=== PATIENT | female | born 1960 | race Caucasian/White ===

== ENCOUNTER 2020-11-09 18:34 | Inpatient (IN) | payer OTHER ==
[~2020-11-09] VITALS: Ht 157.5 cm; Wt 75.0 kg
--- NOTE | 2020-11-09 18:45 | NUR ---
pt BIB [facility] from [facility] for CP onset this AM and is relieved with nitro. pt denies SOB. reports some mild nausea PAT, no vomiting. no c/o at this time
[2020-11-09] MEDS ORDERED: MAALOX/HYOSCYAMINE/LIDOCAINE 45 ML BTL PO ONE (19:00)
[2020-11-09 19:20] LABS: BASOPHILS % (AUTO) 0 % (0-1); EOSINOPHILS % (AUTO) 0 % (1-7); LYMPHOCYTES % (AUTO) 10 % (22-44); MEAN CORPUSCULAR HEMOGLOBIN 30.6 pg (27.0-34.8); MEAN CORPUSCULAR HGB CONC 34.2 g/dL (32.4-35.8); MEAN PLATELET VOLUME 8.2 fL (7.4-10.4); MONOCYTES % (AUTO) 6 % (2-9); NEUTROPHILS % (AUTO) 83 % (42-75); PLATELET COUNT 265 x10^3/uL (130-400); RED CELL DISTRIBUTION WIDTH 12.5 % (9.6-15.2)
--- NOTE | 2020-11-09 19:20 | NUR ---
Dr Seaman at bedside for eval
[2020-11-09] MEDS ORDERED: NITROGLYCERIN SINGLE TAB 0.4 MG SL ONE ×2 (19:30→19:40)
[2020-11-09 19:31] LABS: ALBUMIN 3.1 g/dL (3.4-5.0); ANION GAP 11 mmol/L (5-15); CALCIUM 9.6 mg/dL (8.5-10.1); CHLORIDE 98 mmol/L (98-107); CREATININE 0.63 mg/dL (0.55-1.02)
--- NOTE | 2020-11-09 19:31 | NUR ---
CXR at bedside
--- NOTE | 2020-11-09 19:31 | NUR ---
pt now reports that she is experiencing epigastric pain at 06/15
[2020-11-09 19:36] LABS: ALKALINE PHOSPHATASE 252 U/L (45-117); BILIRUBIN,TOTAL 2.8 mg/dL (0.2-1.0); TOTAL PROTEIN 6.4 g/dL (6.4-8.2)
[2020-11-09] MEDS ORDERED: PROPARACAINE OPHTH 0.5%, 15ML ONE ×2 (19:46→19:48)
[2020-11-09 19:55] LABS: ALANINE AMINOTRANSFERASE 1763 U/L (12-78)
--- NOTE | 2020-11-09 20:08 | NUR ---
repeat EKG at bedside Dr. Seaman at bedside for recheck
[2020-11-09] MEDS ORDERED: HEPARIN 5,000 UNITS/ML, 1ML IV ONE (20:30)
[2020-11-09] MEDS ORDERED: HEPARIN 5,000 UNITS/ML, 1ML IV PRN (20:30)
[2020-11-09] MEDS ORDERED: HEPARIN 25,000 UNITS/250ML PMX 250 ML IV PRN (20:30)
[2020-11-09] MEDS ORDERED: SEMA1PEN3 SQ (20:45)
[2020-11-09] MEDS ORDERED: LISI40TA9 PO (20:45)
[2020-11-09] MEDS ORDERED: METF500T17 PO (20:45)
[2020-11-09] MEDS ORDERED: ATOR10TA9 PO (20:45)
--- NOTE | 2020-11-09 20:45 | NUR ---
Dr. Corley has bene to bedside for eval. 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 consent obtained, procural sedation packet initiated pt undressed. pt sister at bedside
[2020-11-09] MEDS ORDERED: ONDANSETRON 2MG/ML, 2ML ONE (20:49)
[2020-11-09] MEDS ORDERED: FENTANYL PF 100 MCG/2ML ONE ×2 (20:57→21:21)
[2020-11-09] MEDS ORDERED: LIDOCAINE 2%, 20ML ONE (20:57)
[2020-11-09] MEDS ORDERED: MIDAZOLAM 1 MG/ML, 2ML ONE (20:57)
[2020-11-09] MEDS ORDERED: ONDANSETRON 2MG/ML, 2ML IVPush ONE (21:00)
[2020-11-09 21:12] LABS: INTERNATIONAL NORMALIZED RATIO 1.01 (0.93-1.1); PROTHROMBIN TIME 10.8 Seconds (9.6-11.5)
[2020-11-09] MEDS ORDERED: VERAPAMIL 2.5 MG/ML, 2ML ONE (21:16)
[2020-11-09] MEDS ORDERED: BIVALIRUDIN 250 MG ONE (21:16)
[2020-11-09] MEDS ORDERED: ONDANSETRON ODT 4 MG PO PRN (21:30)
[2020-11-09] MEDS ORDERED: morphine SULFATE 10 MG/ML, 1ML IVPush PRN (21:30)
[2020-11-09] MEDS ORDERED: BISACODYL 10 MG SUPP PR PRN (21:30)
[2020-11-09] MEDS ORDERED: NITROGLYCERIN 0.4 MG BOTTLE (25 TABS) SL PRN (21:30)
[2020-11-09] MEDS ORDERED: POLYETHYLENE GLYCOL 17 GM PACKET PO PRN (21:30)
[2020-11-09 21:50] VITALS: BP 104/70
[2020-11-09] MEDS: SODIUM CHLORIDE 0.9% 1,000 ML IV SCH (23:12)
[2020-11-10 01:33] VITALS: BP 117/82
[2020-11-10] MEDS: ASPIRIN 81 MG TABLET EC PO SCH (05:28)
[2020-11-10] MEDS: SODIUM CHLORIDE 0.9% 1,000 ML IV SCH (05:28)
[2020-11-10 06:11] LABS: BASOPHILS % (AUTO) 1 % (0-1); EOSINOPHILS % (AUTO) 1 % (1-7); LYMPHOCYTES % (AUTO) 34 % (22-44); MEAN CORPUSCULAR HEMOGLOBIN 30.6 pg (27.0-34.8); MEAN CORPUSCULAR HGB CONC 34.2 g/dL (32.4-35.8); MEAN PLATELET VOLUME 8.3 fL (7.4-10.4); MONOCYTES % (AUTO) 7 % (2-9); NEUTROPHILS % (AUTO) 58 % (42-75); PLATELET COUNT 239 x10^3/uL (130-400); RED BLOOD COUNT 4.69 x10^6/uL (3.82-5.3); RED CELL DISTRIBUTION WIDTH 12.3 % (9.6-15.2)
[2020-11-10 06:13] LABS: CHLORIDE 104 mmol/L (98-107)
[2020-11-10 06:38] LABS: ALANINE AMINOTRANSFERASE 1394 U/L (12-78); ALBUMIN 2.7 g/dL (3.4-5.0); ALKALINE PHOSPHATASE 249 U/L (45-117); ANION GAP 7 mmol/L (5-15); BILIRUBIN,TOTAL 2.1 mg/dL (0.2-1.0); CALCIUM 8.6 mg/dL (8.5-10.1); CHOL/HDL RATIO 1.8; CHOLESTEROL, TOTAL 61 mg/dL (140-239); CREATININE 0.35 mg/dL (0.55-1.02); HDL CHOL % 56 % (28-40); HDL CHOLESTEROL (DIRECT) 34 mg/dL (40-60); LDL CHOLESTEROL,CALCULATED 13 mg/dL (54-169); LDL/HDL RATIO 0.4 (0.5-3.0); TOTAL PROTEIN 5.8 g/dL (6.4-8.2); TRIGLYCERIDES 68 mg/dL (50-200); VLDL CHOLESTEROL 14 mg/dL (0-25)
[2020-11-10 07:48] VITALS: BP 122/84
[2020-11-10] MEDS ORDERED: metFORMIN 500 MG TABLET PO SCH (09:00)
[2020-11-10 09:47] LABS: BILIRUBIN, DIRECT 1.2 mg/dL (0.1-0.2)
[2020-11-10] MEDS: LISINOPRIL 40 MG TABLET PO SCH (10:05)
[2020-11-10] MEDS: SENNA/DOCUSATE TABLET PO SCH (10:05)
[2020-11-10] MEDS: INSULIN LISPRO 100 UNITS/ML, PEN SQ-INSULIN SCH ×3 (11:00→21:19)
[2020-11-10 14:39] VITALS: BP 118/79
[2020-11-10 17:20] LABS: ANA SCREEN NEGATIVE (Negative)
[2020-11-10 20:00] VITALS: BP 126/72
[2020-11-11 02:34] VITALS: BP 103/71
[2020-11-11 05:21] LABS: BASOPHILS % (AUTO) 1 % (0-1); EOSINOPHILS % (AUTO) 2 % (1-7); LYMPHOCYTES % (AUTO) 28 % (22-44); MEAN CORPUSCULAR HEMOGLOBIN 30.9 pg (27.0-34.8); MEAN CORPUSCULAR HGB CONC 34.6 g/dL (32.4-35.8); MEAN PLATELET VOLUME 8.5 fL (7.4-10.4); MONOCYTES % (AUTO) 9 % (2-9); NEUTROPHILS % (AUTO) 61 % (42-75); PLATELET COUNT 215 x10^3/uL (130-400); RED BLOOD COUNT 4.58 x10^6/uL (3.82-5.3); RED CELL DISTRIBUTION WIDTH 12.8 % (9.6-15.2)
[2020-11-11 05:35] LABS: CHLORIDE 100 mmol/L (98-107)
[2020-11-11 05:43] LABS: ALANINE AMINOTRANSFERASE 847 U/L (12-78); ALBUMIN 2.6 g/dL (3.4-5.0); ALKALINE PHOSPHATASE 230 U/L (45-117); ANION GAP 8 mmol/L (5-15); BILIRUBIN,TOTAL 1.5 mg/dL (0.2-1.0); CALCIUM 8.9 mg/dL (8.5-10.1); CREATININE 0.49 mg/dL (0.55-1.02); TOTAL PROTEIN 5.9 g/dL (6.4-8.2)
[2020-11-11 05:56] VITALS: BP 125/85
[2020-11-11] MEDS: ASPIRIN 81 MG TABLET EC PO SCH (05:58)
[2020-11-11] MEDS ORDERED: METOPROLOL SUCCINATE 25 MG TAB.ER.24H PO SCH (06:00)
[2020-11-11 08:00] VITALS: BP 123/81
[2020-11-11] MEDS: LISINOPRIL 40 MG TABLET PO SCH (08:35)
[2020-11-11] MEDS: SENNA/DOCUSATE TABLET PO SCH (08:40)
[2020-11-11] MEDS: INSULIN LISPRO 100 UNITS/ML, PEN SQ-INSULIN SCH (08:51)
[2020-11-11] MEDS ORDERED: ASPI81TA45 PO (09:25)
[2020-11-11] MEDS ORDERED: METO25TA91 PO (09:25)
[2020-11-13] MEDS ORDERED: TEMPLATE NON-FORMULARY MED. (Semaglutide (Ozempic) 1 MG) SQ SCH (09:00)
== END 2020-11-11 11:09 | disposition home or self-care (01) | DRG 281 ==
LOC: ED 21:55 → 5SO 21:56
PROVIDERS: ADMIT Student in an Organized Health Care Education/Training Program; ATTEND Internal Medicine
PROC: 4A023N7 Measurement of Cardiac Sampling and Pressure, Left Heart, Percutaneous Approach (ICD-10-PCS; principal; 2020-11-09)
PROC: B2111ZZ Fluoroscopy of Multiple Coronary Arteries using Low Osmolar Contrast (ICD-10-PCS; 2020-11-09)
PROC: B2151ZZ Fluoroscopy of Left Heart using Low Osmolar Contrast (ICD-10-PCS; 2020-11-09)
DX: I21.4 Non-ST elevation (NSTEMI) myocardial infarction (principal); I51.81 Takotsubo syndrome; E78.5 Hyperlipidemia, unspecified; E11.9 Type 2 diabetes mellitus without complications; I10 Essential (primary) hypertension; I25.10 Atherosclerotic heart disease of native coronary artery without angina pectoris; K76.9 Liver disease, unspecified; E66.9 Obesity, unspecified; R74.01 Elevation of levels of liver transaminase levels; Z80.0 Family history of malignant neoplasm of digestive organs; Z80.1 Family history of malignant neoplasm of trachea, bronchus and lung; Z87.11 Personal history of peptic ulcer disease; Z90.49 Acquired absence of other specified parts of digestive tract; Z98.84 Bariatric surgery status; Z68.30 Body mass index [BMI] 30.0-30.9, adult
CPT/HCPCS: 36415; 93458; 96374; 99291; J3490; 71045; 76700; 80053; 80061; 80074; 82248; 82390; 82550; 82728; 82784; 82962; 82977; 83036; 83516; 83540; 83550; 83690; 84075; 84080; 84484; 85025; 85520; 85610; 86038; 86644; 86645; 86664; 86665; 86694; 86695; 86696; 86790; 87635; 93005; 93306; 93356; 99156; C1769; C1894; G0378; J0583; J2250; J2405; J3010; J1815; J7030; Q9967

== ENCOUNTER 2020-11-12 03:32 | Inpatient (IN) | payer OTHER ==
[~2020-11-12] VITALS: Ht 157.5 cm; Wt 82.7 kg
[~2020-11-12 03:32] MED LIST: ASPI81TA45 PO; ATOR10TA9 PO; LISI40TA9 PO; METF500T17 PO; METO25TA91 PO; SEMA1PEN3 SQ
[2020-11-12] MEDS ORDERED: MORPHINE SULFATE 4 MG/ML, 1ML ONE (03:58)
[2020-11-12] MEDS ORDERED: ONDANSETRON 2MG/ML, 2ML ONE (03:58)
[2020-11-12] MEDS ORDERED: MAALOX/HYOSCYAMINE/LIDOCAINE 45 ML BTL ONE (03:59)
[2020-11-12] MEDS ORDERED: FAMOTIDINE 20 MG/2 ML ONE (03:59)
[2020-11-12] MEDS ORDERED: MORPHINE SULFATE 4 MG/ML, 1ML IVPush PRN (04:00)
[2020-11-12] MEDS ORDERED: SODIUM CHLORIDE FLUSH 10ML SYR IVF ONE (04:00)
[2020-11-12] MEDS ORDERED: ONDANSETRON 2MG/ML, 2ML IVPush ONE (04:00)
[2020-11-12] MEDS ORDERED: FAMOTIDINE 20 MG/2 ML IVPush ONE (04:00)
[2020-11-12] MEDS ORDERED: SODIUM CHLORIDE 0.9% 1,000ML IVBOLUS ONE (04:00)
[2020-11-12] MEDS ORDERED: MAALOX/HYOSCYAMINE/LIDOCAINE 45 ML BTL PO ONE (04:00)
[2020-11-12 04:16] LABS: BASOPHILS % (AUTO) 1 % (0-1); EOSINOPHILS % (AUTO) 1 % (1-7); LYMPHOCYTES % (AUTO) 21 % (22-44); MEAN CORPUSCULAR HEMOGLOBIN 31.4 pg (27.0-34.8); MEAN PLATELET VOLUME 8.4 fL (7.4-10.4); MONOCYTES % (AUTO) 8 % (2-9); NEUTROPHILS % (AUTO) 70 % (42-75); PLATELET COUNT 244 x10^3/uL (130-400); RED BLOOD COUNT 4.89 x10^6/uL (3.82-5.3); RED CELL DISTRIBUTION WIDTH 12.8 % (9.6-15.2)
[2020-11-12 04:30] LABS: ALANINE AMINOTRANSFERASE 816 U/L (12-78); ANION GAP 11 mmol/L (5-15); CALCIUM 8.8 mg/dL (8.5-10.1); CHLORIDE 98 mmol/L (98-107); CREATININE 0.48 mg/dL (0.55-1.02)
[2020-11-12 04:35] LABS: ALKALINE PHOSPHATASE 366 U/L (45-117); BILIRUBIN,TOTAL 2.7 mg/dL (0.2-1.0); TOTAL PROTEIN 6.9 g/dL (6.4-8.2)
[2020-11-12 04:40] LABS: TROPONIN I 0.474 ng/mL (0.000-0.045)
--- NOTE | 2020-11-12 05:56 | NUR ---
PT REPORTS RELIEF OF PAIN AT THIS TIME, VSS, SISTER AT BEDSIDE, MICHAEL
[2020-11-12] MEDS ORDERED: OMNIPAQUE 350 MG/ML, 100ML BOTTLE ONE (06:03)
--- NOTE | 2020-11-12 06:45 | NUR ---
report from CARLTON Edmonds
--- NOTE | 2020-11-12 06:57 | NUR ---
ERP AT BS
--- NOTE | 2020-11-12 07:03 | NUR ---
PT RESTING ON GURNEY, COMFORT MEASURES PROVIDED. NADN/VSS. PT DENIES PAIN AT THIS TIME. CALL LIGHT WITHIN REACH. FAMILY AT BS.
--- NOTE | 2020-11-12 07:45 | NUR ---
PT AMBULATORY TO BR WITH UPRIGHT STEADY GAIT
[2020-11-12] MEDS ORDERED: KETOROLAC 30 MG/1 ML IV PRN (08:00)
[2020-11-12] MEDS ORDERED: GADOTERATE 10 MMOL/20 ML VIAL ONE (08:00)
[2020-11-12] MEDS ORDERED: IBUPROFEN 600 MG TABLET PO PRN (08:00)
[2020-11-12] MEDS ORDERED: MELATONIN 5 MG TABLET PO PRN (08:00)
[2020-11-12] MEDS ORDERED: ONDANSETRON 2MG/ML, 2ML IVPush PRN (08:00)
--- NOTE | 2020-11-12 08:03 | NUR ---
Pt to be admitted to [facility], room 441. Report called to
[2020-11-12 09:16] VITALS: BP 124/72
[2020-11-12] MEDS: LACTATED RINGERS 1,000 ML IV SCH ×2 (10:04→23:00)
[2020-11-12] MEDS: SENNA/DOCUSATE TABLET PO SCH (10:05)
[2020-11-12 13:06] VITALS: BP 124/74
[2020-11-12] MEDS: OXYcodone IR 5MG TABLET PO PRN ×2 (14:03→21:02)
[2020-11-12] MEDS ORDERED: OMNIPAQUE 350 MG/ML, 75ML BOTTLE ONE (16:15)
[2020-11-12] MEDS: INSULIN REGULAR 100 UNITS/ML, 3ML VIAL SQ-INSULIN SCH ×2 (17:10→21:08)
[2020-11-12 20:15] VITALS: BP 124/84
[2020-11-12] MEDS: TRAZODONE 50MG TABLET PO PRN (21:01)
[2020-11-13 01:53] VITALS: BP 117/78
[2020-11-13 05:53] LABS: CHLORIDE 99 mmol/L (98-107)
[2020-11-13 05:54] LABS: BASOPHILS % (AUTO) 0 % (0-1); EOSINOPHILS % (AUTO) 1 % (1-7); LYMPHOCYTES % (AUTO) 26 % (22-44); MEAN CORPUSCULAR HEMOGLOBIN 31.1 pg (27.0-34.8); MEAN CORPUSCULAR HGB CONC 34.7 g/dL (32.4-35.8); MEAN PLATELET VOLUME 8.6 fL (7.4-10.4); MONOCYTES % (AUTO) 9 % (2-9); NEUTROPHILS % (AUTO) 64 % (42-75); PLATELET COUNT 234 x10^3/uL (130-400); RED BLOOD COUNT 4.33 x10^6/uL (3.82-5.3)
[2020-11-13] MEDS: METOPROLOL SUCCINATE 25 MG TAB.ER.24H PO SCH (05:54)
[2020-11-13] MEDS: OXYcodone IR 5MG TABLET PO PRN ×3 (05:54→20:58)
[2020-11-13 06:02] LABS: ALANINE AMINOTRANSFERASE 725 U/L (12-78); ALBUMIN 2.6 g/dL (3.4-5.0); ALKALINE PHOSPHATASE 436 U/L (45-117); ANION GAP 12 mmol/L (5-15); BILIRUBIN,TOTAL 3.4 mg/dL (0.2-1.0); CALCIUM 8.9 mg/dL (8.5-10.1); CHOL/HDL RATIO 5.8; CHOLESTEROL, TOTAL 139 mg/dL (140-239); CREATININE 0.35 mg/dL (0.55-1.02); HDL CHOL % 17 % (28-40); HDL CHOLESTEROL (DIRECT) 24 mg/dL (40-60); LDL CHOLESTEROL,CALCULATED 101 mg/dL (54-169); LDL/HDL RATIO 4.2 (0.5-3.0); TOTAL PROTEIN 6.1 g/dL (6.4-8.2); TRIGLYCERIDES 68 mg/dL (50-200); VLDL CHOLESTEROL 14 mg/dL (0-25)
[2020-11-13 07:38] VITALS: BP 117/76
[2020-11-13] MEDS: INSULIN REGULAR 100 UNITS/ML, 3ML VIAL SQ-INSULIN SCH ×4 (07:41→21:07)
[2020-11-13] MEDS: SENNA/DOCUSATE TABLET PO SCH (07:41)
[2020-11-13] MEDS: LISINOPRIL 5 MG TABLET PO SCH (07:41)
[2020-11-13] MEDS ORDERED: MAGNESIUM SULFATE PMX 2GM/50ML 50 ML IV ONE (09:00)
[2020-11-13] MEDS: LACTATED RINGERS 1,000 ML IV SCH (13:25)
[2020-11-13 13:27] VITALS: BP 121/80
[2020-11-13 20:00] VITALS: BP 137/95
[2020-11-13] MEDS: POLYETHYLENE GLYCOL 17 GM PACKET PO PRN (20:58)
[2020-11-13] MEDS: CARVEDILOL 3.125 MG TABLET PO SCH (20:58)
[2020-11-13] MEDS: TRAZODONE 50MG TABLET PO PRN (20:58)
[2020-11-14] MEDS: LACTATED RINGERS 1,000 ML IV SCH ×3 (01:40→23:58)
[2020-11-14 01:51] VITALS: BP 103/65
[2020-11-14 05:44] LABS: ALBUMIN 2.6 g/dL (3.4-5.0); ANION GAP 9 mmol/L (5-15); CALCIUM 8.7 mg/dL (8.5-10.1); CHLORIDE 97 mmol/L (98-107)
[2020-11-14 05:47] LABS: ALANINE AMINOTRANSFERASE 678 U/L (12-78); ALKALINE PHOSPHATASE 509 U/L (45-117); BILIRUBIN,TOTAL 4.9 mg/dL (0.2-1.0); CREATININE 0.32 mg/dL (0.55-1.02); TOTAL PROTEIN 6.3 g/dL (6.4-8.2)
[2020-11-14] MEDS: METOPROLOL SUCCINATE 25 MG TAB.ER.24H PO SCH (06:00)
[2020-11-14] MEDS: INSULIN REGULAR 100 UNITS/ML, 3ML VIAL SQ-INSULIN SCH ×4 (07:00→20:50)
[2020-11-14 07:14] VITALS: BP 126/87
[2020-11-14] MEDS ORDERED: KETOROLAC 30 MG/1 ML IM PRN (08:00)
[2020-11-14] MEDS: SENNA/DOCUSATE TABLET PO SCH (09:00)
[2020-11-14] MEDS: BISACODYL 10 MG SUPP PR SCH ×2 (09:59→18:10)
[2020-11-14] MEDS: LISINOPRIL 5 MG TABLET PO SCH (09:59)
[2020-11-14 13:37] VITALS: BP 115/78
[2020-11-14 19:56] VITALS: BP 126/80
[2020-11-14] MEDS: CARVEDILOL 3.125 MG TABLET PO SCH (20:50)
[2020-11-15] MEDS: OXYcodone IR 5MG TABLET PO PRN ×4 (00:03→21:58)
[2020-11-15 01:56] VITALS: BP 107/72
[2020-11-15 06:02] LABS: BASOPHILS % (AUTO) 0 % (0-1); EOSINOPHILS % (AUTO) 1 % (1-7); LYMPHOCYTES % (AUTO) 17 % (22-44); MEAN CORPUSCULAR HEMOGLOBIN 31.1 pg (27.0-34.8); MEAN CORPUSCULAR HGB CONC 34.5 g/dL (32.4-35.8); MEAN PLATELET VOLUME 8.6 fL (7.4-10.4); MONOCYTES % (AUTO) 11 % (2-9); NEUTROPHILS % (AUTO) 71 % (42-75); PLATELET COUNT 267 x10^3/uL (130-400); RED CELL DISTRIBUTION WIDTH 13.1 % (9.6-15.2)
[2020-11-15 06:15] LABS: ALBUMIN 2.4 g/dL (3.4-5.0); ANION GAP 12 mmol/L (5-15); CALCIUM 9.1 mg/dL (8.5-10.1); CHLORIDE 98 mmol/L (98-107)
[2020-11-15 06:18] LABS: ALANINE AMINOTRANSFERASE 574 U/L (12-78); ALKALINE PHOSPHATASE 562 U/L (45-117); BILIRUBIN,TOTAL 6.5 mg/dL (0.2-1.0); CREATININE 0.43 mg/dL (0.55-1.02); TOTAL PROTEIN 5.9 g/dL (6.4-8.2)
[2020-11-15 06:51] VITALS: BP 126/74
[2020-11-15] MEDS: LISINOPRIL 5 MG TABLET PO SCH (07:25)
[2020-11-15] MEDS: SENNA/DOCUSATE TABLET PO SCH (07:25)
[2020-11-15] MEDS: INSULIN REGULAR 100 UNITS/ML, 3ML VIAL SQ-INSULIN SCH ×4 (07:25→20:36)
[2020-11-15] MEDS: BISACODYL 10 MG SUPP PR SCH (07:25)
[2020-11-15] MEDS ORDERED: ENOXAPARIN 40 MG/0.4 ML SQ SCH (08:30)
[2020-11-15] MEDS ORDERED: DIPHENHYDRAMINE/ZINC CRM 2%, 30GM TP PRN (12:30)
[2020-11-15 13:22] VITALS: BP 121/75
[2020-11-15] MEDS: metFORMIN 850 MG TABLET PO SCH (17:00)
[2020-11-15] MEDS: LACTATED RINGERS 1,000 ML IV SCH (17:04)
[2020-11-15 19:47] VITALS: BP 117/73
[2020-11-15] MEDS: CARVEDILOL 3.125 MG TABLET PO SCH (20:35)
[2020-11-16 03:38] VITALS: BP 122/81
[2020-11-16] MEDS: INSULIN REGULAR 100 UNITS/ML, 3ML VIAL SQ-INSULIN SCH ×4 (07:00→20:42)
[2020-11-16] MEDS: metFORMIN 850 MG TABLET PO SCH ×2 (07:29→17:00)
[2020-11-16] MEDS: BISACODYL 10 MG SUPP PR SCH (07:30)
[2020-11-16] MEDS: LISINOPRIL 5 MG TABLET PO SCH (07:40)
[2020-11-16] MEDS: SENNA/DOCUSATE TABLET PO SCH (07:41)
[2020-11-16] MEDS: OXYcodone IR 5MG TABLET PO PRN ×3 (07:41→23:48)
[2020-11-16] MEDS: LACTATED RINGERS 1,000 ML IV SCH (07:41)
[2020-11-16 08:17] VITALS: BP 126/78
[2020-11-16 13:42] VITALS: BP 134/83
[2020-11-16 16:57] LABS: INTERNATIONAL NORMALIZED RATIO 1.05 (0.93-1.1); PROTHROMBIN TIME 11.2 Seconds (9.6-11.5)
[2020-11-16] MEDS: POLYETHYLENE GLYCOL 17 GM PACKET PO PRN (17:22)
[2020-11-16 19:15] VITALS: BP 128/63
[2020-11-16] MEDS ORDERED: LACTATED RINGERS 1,000 ML IV SCH (20:30)
[2020-11-16] MEDS: CARVEDILOL 3.125 MG TABLET PO SCH (20:42)
[2020-11-16] MEDS: NS + 20MEQ KCL 1,000 ML IV SCH (23:48)
[2020-11-17 00:40] VITALS: BP 102/56
[2020-11-17 05:27] LABS: ALBUMIN 1.9 g/dL (3.4-5.0); ANION GAP 8 mmol/L (5-15); CALCIUM 8.3 mg/dL (8.5-10.1); CHLORIDE 100 mmol/L (98-107)
[2020-11-17 05:30] LABS: ALANINE AMINOTRANSFERASE 343 U/L (12-78); ALKALINE PHOSPHATASE 593 U/L (45-117); BILIRUBIN,TOTAL 7.5 mg/dL (0.2-1.0); CREATININE 0.36 mg/dL (0.55-1.02); TOTAL PROTEIN 5.3 g/dL (6.4-8.2)
[2020-11-17] MEDS: INSULIN REGULAR 100 UNITS/ML, 3ML VIAL SQ-INSULIN SCH ×4 (07:00→20:28)
[2020-11-17] MEDS: metFORMIN 850 MG TABLET PO SCH ×2 (07:29→16:26)
[2020-11-17 08:00] VITALS: BP 132/82
[2020-11-17] MEDS: BISACODYL 10 MG SUPP PR SCH (08:30)
[2020-11-17] MEDS: SENNA/DOCUSATE TABLET PO SCH (08:39)
[2020-11-17] MEDS: LISINOPRIL 5 MG TABLET PO SCH (08:39)
[2020-11-17] MEDS: NS + 20MEQ KCL 1,000 ML IV SCH ×2 (08:39→22:07)
[2020-11-17] MEDS: OXYcodone IR 5MG TABLET PO PRN ×2 (08:40→20:29)
[2020-11-17] MEDS ORDERED: THROMBIN 20,000 UNIT VIAL TP ONE (11:18)
[2020-11-17] MEDS ORDERED: CHLORHEXIDINE 15 ML UDC ONE (11:26)
[2020-11-17] MEDS ORDERED: FENTANYL PF 250 MCG/5ML ONE (11:30)
[2020-11-17] MEDS ORDERED: CHLORHEXIDINE 15 ML UDC PO ONE (11:30)
[2020-11-17] MEDS ORDERED: GLYCOPYRROLATE 0.2MG/1ML, 5ML ONE (12:21)
[2020-11-17] MEDS ORDERED: CEFAZOLIN 1,000 MG ONE (12:21)
[2020-11-17] MEDS ORDERED: NEOSTIGMINE 1 MG/ML, 10ML ONE (12:21)
[2020-11-17] MEDS ORDERED: SUCCINYLCHOLINE 20 MG/ML, 10ML ONE (12:21)
[2020-11-17] MEDS ORDERED: LIDOCAINE-MPF 2% ,5ML ONE (12:21)
[2020-11-17] MEDS ORDERED: PROPOFOL 10 MG/ML, 20ML ONE (12:21)
[2020-11-17] MEDS ORDERED: ONDANSETRON 2MG/ML, 2ML ONE (12:21)
[2020-11-17] MEDS ORDERED: ROCURONIUM 10MG/ML,5ML ONE ×2 (12:21→12:59)
[2020-11-17] MEDS ORDERED: MIDAZOLAM 1 MG/ML, 2ML ONE (12:24)
[2020-11-17] MEDS ORDERED: OXYcodone 5 MG/5 ML ORAL.SOL UDC PO PRN (12:30)
[2020-11-17] MEDS ORDERED: FENTANYL PF 100 MCG/2ML IV PRN (12:30)
[2020-11-17] MEDS ORDERED: hydrALAzine 20 MG/ML, 1ML IV PRN (12:30)
[2020-11-17] MEDS ORDERED: PROMETHAZINE 25 MG/ML, 1ML IVPush PRN (12:30)
[2020-11-17] MEDS ORDERED: HYDROmorphone 1 MG/ML, 1ML INJ IVPush PRN (12:30)
[2020-11-17] MEDS ORDERED: EPHEDRINE 50 MG/ML, 1ML IVPush PRN (12:30)
[2020-11-17] MEDS ORDERED: LABETALOL 5MG/ML, 20ML IV PRN (12:30)
[2020-11-17] MEDS ORDERED: ONDANSETRON 2MG/ML, 2ML IVPush PRN (12:30)
[2020-11-17] MEDS ORDERED: ACETAMINOPHEN 325 MG TABLET PO PRN (12:30)
[2020-11-17] MEDS ORDERED: DEXAMETHASONE 4 MG/ML, 5ML ONE (13:00)
[2020-11-17] MEDS ORDERED: KETOROLAC 30 MG/1 ML ONE (13:01)
[2020-11-17] MEDS ORDERED: EPHEDRINE 50 MG/ML, 1ML ONE (13:02)
[2020-11-17] MEDS ORDERED: BUPIVACAINE/PF 0.25% ONE ×2 (13:37)
[2020-11-17] MEDS ORDERED: EPINEPHRINE 1 MG/ML, 1ML ONE (13:39)
[2020-11-17 20:18] VITALS: BP 106/67
[2020-11-17] MEDS: CARVEDILOL 3.125 MG TABLET PO SCH (20:29)
[2020-11-17] MEDS: TRAZODONE 50MG TABLET PO PRN (22:06)
[2020-11-18 01:22] VITALS: BP 101/60
[2020-11-18 06:01] VITALS: BP 100/68
[2020-11-18] MEDS: NS + 20MEQ KCL 1,000 ML IV SCH (07:33)
[2020-11-18] MEDS: INSULIN REGULAR 100 UNITS/ML, 3ML VIAL SQ-INSULIN SCH (07:42)
[2020-11-18] MEDS ORDERED: metFORMIN 500 MG TABLET PO SCH (08:00)
[2020-11-18 09:08] LABS: BASOPHILS % (AUTO) 1 % (0-1); EOSINOPHILS % (AUTO) 0 % (1-7); LYMPHOCYTES % (AUTO) 19 % (22-44); MEAN CORPUSCULAR HEMOGLOBIN 30.9 pg (27.0-34.8); MEAN CORPUSCULAR HGB CONC 34.5 g/dL (32.4-35.8); MEAN PLATELET VOLUME 8.3 fL (7.4-10.4); MONOCYTES % (AUTO) 6 % (2-9); NEUTROPHILS % (AUTO) 73 % (42-75); PLATELET COUNT 277 x10^3/uL (130-400); RED BLOOD COUNT 3.97 x10^6/uL (3.82-5.3); RED CELL DISTRIBUTION WIDTH 13.4 % (9.6-15.2)
[2020-11-18] MEDS: LISINOPRIL 5 MG TABLET PO SCH (09:18)
[2020-11-18] MEDS: SENNA/DOCUSATE TABLET PO SCH (09:18)
[2020-11-18] MEDS: BISACODYL 10 MG SUPP PR SCH (09:18)
[2020-11-18] MEDS ORDERED: OXYC5TAB98 PO (10:25)
[2020-11-18] MEDS ORDERED: CARV3.1212 PO (10:25)
[2020-11-18] MEDS ORDERED: INSU100V5 SQ-INSULIN (10:25)
[2020-11-18] MEDS ORDERED: BISA10SU4 PR (10:25)
[2020-11-18] MEDS ORDERED: SENN-211 PO (10:25)
== END 2020-11-18 11:00 | disposition home or self-care (01) | DRG 405 ==
LOC: ED 03:58 → EDIP 07:24 → 4NW 09:12
PROVIDERS: ADMIT Family Medicine; ATTEND Internal Medicine
PROC: 0DNW0ZZ Release Peritoneum, Open Approach (ICD-10-PCS; 2020-11-17)
PROC: 0FB00ZZ Excision of Liver, Open Approach (ICD-10-PCS; principal; 2020-11-17 14:00)
DX: C25.9 Malignant neoplasm of pancreas, unspecified (principal); K83.1 Obstruction of bile duct; C78.7 Secondary malignant neoplasm of liver and intrahepatic bile duct; E87.1 Hypo-osmolality and hyponatremia; I51.81 Takotsubo syndrome; Z20.822 Contact with and (suspected) exposure to COVID-19; E04.2 Nontoxic multinodular goiter; E66.9 Obesity, unspecified; E78.5 Hyperlipidemia, unspecified; K43.9 Ventral hernia without obstruction or gangrene; E11.9 Type 2 diabetes mellitus without complications; I10 Essential (primary) hypertension; R79.89 Other specified abnormal findings of blood chemistry; R94.5 Abnormal results of liver function studies; K59.00 Constipation, unspecified; K66.0 Peritoneal adhesions (postprocedural) (postinfection); K76.0 Fatty (change of) liver, not elsewhere classified; Z80.0 Family history of malignant neoplasm of digestive organs; Z80.1 Family history of malignant neoplasm of trachea, bronchus and lung; Z80.3 Family history of malignant neoplasm of breast; Z87.11 Personal history of peptic ulcer disease; Z90.49 Acquired absence of other specified parts of digestive tract; Z98.84 Bariatric surgery status; Z91.018 Allergy to other foods; Z68.33 Body mass index [BMI] 33.0-33.9, adult
CPT/HCPCS: 36415; 96374; 96375; 99285; A9575; J3490; 71045; 71270; 74177; 74183; 77012; 80053; 80061; 82962; 83036; 83690; 83735; 84484; 85025; 85610; 86301; 87635; 88307; 88331; 93005; G0378; J0171; J0690; J1100; J1650; J1815; J1885; J2250; J2405; J2704; J2710; J3010; J3480; Q9967; J0330; J2270; J3475; J7030; J7120

== ENCOUNTER 2020-11-21 12:41 | Inpatient (IN) | payer OTHER ==
[~2020-11-21] VITALS: Ht 154.9 cm; Wt 76.5 kg
[~2020-11-21 12:41] MED LIST changes: +BISA10SU4 PR; +CARV3.1212 PO; +INSU100V5 SQ-INSULIN; +OXYC5TAB98 PO; +SENN-211 PO
[2020-11-21 13:40] LABS: MEAN CORPUSCULAR HEMOGLOBIN 30.5 pg (27.0-34.8); MEAN CORPUSCULAR HGB CONC 33.8 g/dL (32.4-35.8); MEAN PLATELET VOLUME 8.5 fL (7.4-10.4); PLATELET COUNT 340 x10^3/uL (130-400); RED CELL DISTRIBUTION WIDTH 14.4 % (9.6-15.2)
--- NOTE | 2020-11-21 13:45 | NUR ---
PT SENT BY MD FOR POSSIBLE STENT. NEW PANCREATIC CA DIAGNOSIS. +JAUNDICE. LEFT LEG SWELLING AND PAIN (+VACCINATION, MODERNA). PT A&O, RESPS EVEN AND UNLABORED, VSS, NADN.
--- NOTE | 2020-11-21 13:47 | NUR ---
US AT BEDSIDE
[2020-11-21 13:51] LABS: ALANINE AMINOTRANSFERASE 219 U/L (12-78); ANION GAP 10 mmol/L (5-15); CALCIUM 9.3 mg/dL (8.5-10.1); CHLORIDE 94 mmol/L (98-107); CREATININE 0.62 mg/dL (0.55-1.02)
[2020-11-21 13:53] LABS: ALKALINE PHOSPHATASE 837 U/L (45-117); TOTAL PROTEIN 6.2 g/dL (6.4-8.2)
[2020-11-21 13:58] LABS: INTERNATIONAL NORMALIZED RATIO 1.14 (0.93-1.1); PROTHROMBIN TIME 12.1 Seconds (9.6-11.5)
[2020-11-21 14:29] LABS: EOS#(MANUAL) 0.34 x10^3/uL (0.0-0.4); EOS% (MANUAL) 4 % (1-7); LYMPH#(MANUAL) 1.72 x10^3/uL (1-3.4); LYMPHS% (MANUAL) 20 % (22-44); MONOS#(MANUAL) 0.17 x10^3/uL (0.3-2.7); MONOS% (MANUAL) 2 % (2-9); SEG#(MANUAL) 6.36 x10^3/uL (1.8-6.8); SEGS% (MANUAL) 74 % (42-75)
[2020-11-21 14:30] LABS: ANISOCYTOSIS 1+; POLYCHROMASIA 1+
[2020-11-21 14:31] LABS: <PLATELET ESTIMATE> ADEQUATE; <PLT MORPHOLOGY> NORMAL PLT MORPH; TARGET CELLS 1+
--- NOTE | 2020-11-21 14:46 | NUR ---
DANILO FARLEY AT BEDSIDE TO DISCUSS POC
--- NOTE | 2020-11-21 15:32 | NUR ---
pt up to restroom with steayd gait
--- NOTE | 2020-11-21 16:19 | NUR ---
IR states procedure delay for tomorrow, pt to be NPO at midnight
[2020-11-21] MEDS ORDERED: OXYcodone IR 5MG TABLET PO PRN (16:30)
[2020-11-21] MEDS ORDERED: ONDANSETRON 2MG/ML, 2ML IVPush PRN (16:30)
[2020-11-21] MEDS ORDERED: hydrALAzine 20 MG/ML, 1ML IVPush PRN (16:30)
[2020-11-21] MEDS ORDERED: ONDANSETRON ODT 4 MG PO PRN (16:30)
[2020-11-21] MEDS ORDERED: DOCUSATE 100 MG CAPSULE PO PRN (16:30)
[2020-11-21] MEDS: SODIUM CHLORIDE 0.9% 1,000 ML IV SCH (16:30)
[2020-11-21] MEDS ORDERED: morphine SULFATE 10 MG/ML, 1ML IVPush PRN (16:30)
[2020-11-21] MEDS ORDERED: PROMETHAZINE 25 MG/ML, 1ML IM PRN (16:30)
--- NOTE | 2020-11-21 16:43 | NUR ---
[facility] at bedside to discuss poc
--- NOTE | 2020-11-21 18:27 | NUR ---
report called to Megha VINCENT in 457, pt taken to floor at this time
[2020-11-21 18:53] VITALS: BP 94/66
[2020-11-21] MEDS: INSULIN LISPRO 100 UNITS/ML, PEN SQ-INSULIN SCH (20:46)
[2020-11-21] MEDS ORDERED: CARVEDILOL 3.125 MG TABLET PO SCH (21:00)
[2020-11-22 00:28] VITALS: BP 131/73
[2020-11-22] MEDS: SODIUM CHLORIDE 0.9% 1,000 ML IV SCH ×2 (00:28→12:56)
[2020-11-22 05:08] LABS: CHLORIDE 99 mmol/L (98-107)
[2020-11-22 05:12] LABS: MEAN CORPUSCULAR HEMOGLOBIN 30.7 pg (27.0-34.8); MEAN CORPUSCULAR HGB CONC 34.3 g/dL (32.4-35.8); MEAN PLATELET VOLUME 8.4 fL (7.4-10.4); PLATELET COUNT 308 x10^3/uL (130-400); RED BLOOD COUNT 3.98 x10^6/uL (3.82-5.3); RED CELL DISTRIBUTION WIDTH 14.3 % (9.6-15.2)
[2020-11-22 05:22] LABS: ALANINE AMINOTRANSFERASE 182 U/L (12-78); ALBUMIN 1.6 g/dL (3.4-5.0); ALKALINE PHOSPHATASE 672 U/L (45-117); ANION GAP 8 mmol/L (5-15); BILIRUBIN,TOTAL 8.5 mg/dL (0.2-1.0); CALCIUM 8.6 mg/dL (8.5-10.1); CREATININE 0.24 mg/dL (0.55-1.02); HDL CHOLESTEROL (DIRECT) 9 mg/dL (40-60); TOTAL PROTEIN 5.2 g/dL (6.4-8.2)
[2020-11-22 05:23] LABS: CHOL/HDL RATIO 57.4; CHOLESTEROL, TOTAL 517 mg/dL (140-239); HDL CHOL % 2 % (28-40); LDL CHOLESTEROL,CALCULATED 478 mg/dL (54-169); LDL/HDL RATIO 53.1 (0.5-3.0); TRIGLYCERIDES 149 mg/dL (50-200); VLDL CHOLESTEROL 30 mg/dL (0-25)
[2020-11-22 05:44] LABS: BASOS#(MANUAL) 0.06 x10^3/uL (0-0.1); BASOS% (MANUAL) 1 % (0-1)
[2020-11-22 05:46] LABS: EOS#(MANUAL) 0.41 x10^3/uL (0.0-0.4); EOS% (MANUAL) 7 % (1-7); LYMPH#(MANUAL) 1.77 x10^3/uL (1-3.4); LYMPHS% (MANUAL) 30 % (22-44); MONOS#(MANUAL) 0.65 x10^3/uL (0.3-2.7); MONOS% (MANUAL) 11 % (2-9); SEG#(MANUAL) 3.01 x10^3/uL (1.8-6.8); SEGS% (MANUAL) 51 % (42-75)
[2020-11-22 05:47] LABS: <PLATELET ESTIMATE> ADEQUATE; <PLT MORPHOLOGY> NORMAL PLT MORPH; ANISOCYTOSIS 1+; POLYCHROMASIA 1+; TARGET CELLS 1+
[2020-11-22] MEDS: INSULIN LISPRO 100 UNITS/ML, PEN SQ-INSULIN SCH ×4 (07:08→20:30)
[2020-11-22] MEDS: LISINOPRIL 20 MG TABLET PO SCH (08:15)
[2020-11-22] MEDS: SENNA/DOCUSATE TABLET PO SCH (08:16)
[2020-11-22 08:27] VITALS: BP 137/80
[2020-11-22] MEDS ORDERED: POTASSIUM CHLORIDE 40 MEQ in SODIUM CHLORIDE 0.9% 500 ML IV ONE (09:00)
[2020-11-22 12:58] VITALS: BP 143/85
[2020-11-22] MEDS: ENOXAPARIN 40 MG/0.4 ML SQ SCH (13:23)
[2020-11-22] MEDS ORDERED: LIDOCAINE 1%, 10ML ONE (15:26)
[2020-11-22] MEDS ORDERED: FLUMAZENIL 0.1 MG/1 ML, 5ML ONE (15:38)
[2020-11-22] MEDS ORDERED: MIDAZOLAM 1 MG/ML, 5ML ONE (15:38)
[2020-11-22] MEDS ORDERED: NALOXONE 1 MG/ML, 2ML ONE (15:38)
[2020-11-22] MEDS ORDERED: FENTANYL PF 100 MCG/2ML ONE (15:38)
[2020-11-22] MEDS ORDERED: CEFTRIAXONE 1,000 MG in DEXTROSE 5% 50 ML IVPB ONE (16:00)
[2020-11-22] MEDS ORDERED: VISIPAQUE 270 MG/ML, 50ML BOTTLE ONE (16:09)
[2020-11-22 19:46] VITALS: BP 158/94
[2020-11-22] MEDS ORDERED: MAGNESIUM SULFATE PMX 2GM/50ML 50 ML IV ONE (23:00)
[2020-11-23 00:01] VITALS: BP 137/83
[2020-11-23 05:27] LABS: CALCIUM 9.3 mg/dL (8.5-10.1); CHLORIDE 94 mmol/L (98-107)
[2020-11-23 05:34] LABS: ALANINE AMINOTRANSFERASE 173 U/L (12-78); ALBUMIN 1.8 g/dL (3.4-5.0); ALKALINE PHOSPHATASE 709 U/L (45-117); ANION GAP 8 mmol/L (5-15); BILIRUBIN,TOTAL 4.5 mg/dL (0.2-1.0); CREATININE 0.37 mg/dL (0.55-1.02); TOTAL PROTEIN 5.7 g/dL (6.4-8.2)
[2020-11-23 06:43] VITALS: BP 148/87
[2020-11-23] MEDS: SENNA/DOCUSATE TABLET PO SCH (07:46)
[2020-11-23] MEDS: LISINOPRIL 20 MG TABLET PO SCH (07:46)
[2020-11-23] MEDS: INSULIN LISPRO 100 UNITS/ML, PEN SQ-INSULIN SCH ×4 (07:47→21:20)
[2020-11-23 12:50] VITALS: BP 121/80
[2020-11-23] MEDS: ENOXAPARIN 40 MG/0.4 ML SQ SCH (13:54)
[2020-11-23 20:02] VITALS: BP 150/81
[2020-11-24 00:24] VITALS: BP 151/85
[2020-11-24 05:36] LABS: MEAN CORPUSCULAR HEMOGLOBIN 30.6 pg (27.0-34.8); MEAN CORPUSCULAR HGB CONC 34.1 g/dL (32.4-35.8); PLATELET COUNT 313 x10^3/uL (130-400); RED BLOOD COUNT 4.01 x10^6/uL (3.82-5.3); RED CELL DISTRIBUTION WIDTH 15.1 % (9.6-15.2)
[2020-11-24 05:48] LABS: CHLORIDE 95 mmol/L (98-107)
[2020-11-24 06:01] LABS: BAND#(MANUAL) 0.08 x10^3/uL; BANDS%(MANUAL) 1 % (0-7); EOS#(MANUAL) 0.31 x10^3/uL (0.0-0.4); EOS% (MANUAL) 4 % (1-7)
[2020-11-24 06:02] LABS: LYMPH#(MANUAL) 2.08 x10^3/uL (1-3.4); LYMPHS% (MANUAL) 27 % (22-44); MONOS#(MANUAL) 0.62 x10^3/uL (0.3-2.7); MONOS% (MANUAL) 8 % (2-9); SEG#(MANUAL) 4.62 x10^3/uL (1.8-6.8); SEGS% (MANUAL) 60 % (42-75)
[2020-11-24 06:03] LABS: <PLATELET ESTIMATE> ADEQUATE; <PLT MORPHOLOGY> NORMAL PLT MORPH; ANISOCYTOSIS 1+; POLYCHROMASIA 1+; TARGET CELLS 1+
[2020-11-24 06:04] LABS: ALANINE AMINOTRANSFERASE 122 U/L (12-78); ALBUMIN 1.8 g/dL (3.4-5.0); ALKALINE PHOSPHATASE 562 U/L (45-117); ANION GAP 8 mmol/L (5-15); BILIRUBIN,TOTAL 3.7 mg/dL (0.2-1.0); CALCIUM 8.8 mg/dL (8.5-10.1); CREATININE 0.35 mg/dL (0.55-1.02); TOTAL PROTEIN 5.6 g/dL (6.4-8.2)
[2020-11-24] MEDS: INSULIN LISPRO 100 UNITS/ML, PEN SQ-INSULIN SCH ×3 (07:00→16:00)
[2020-11-24 07:15] VITALS: BP 150/83
[2020-11-24] MEDS: SENNA/DOCUSATE TABLET PO SCH (08:08)
[2020-11-24] MEDS: LISINOPRIL 20 MG TABLET PO SCH (08:08)
[2020-11-24] MEDS ORDERED: LIDOCAINE 1%, 10ML ONE (09:44)
[2020-11-24] MEDS ORDERED: NALOXONE 1 MG/ML, 2ML ONE (10:20)
[2020-11-24] MEDS ORDERED: MIDAZOLAM 1 MG/ML, 5ML ONE (10:20)
[2020-11-24] MEDS ORDERED: FENTANYL PF 100 MCG/2ML ONE (10:20)
[2020-11-24] MEDS ORDERED: FLUMAZENIL 0.1 MG/1 ML, 5ML ONE (10:20)
[2020-11-24 12:22] VITALS: BP 114/74
[2020-11-24] MEDS: ENOXAPARIN 40 MG/0.4 ML SQ SCH (13:00)
== END 2020-11-24 18:05 | disposition home or self-care (01) | DRG 445 ==
LOC: ED 16:56 → EDIP 17:00 → 4NW 18:20
PROVIDERS: ADMIT Internal Medicine; ATTEND Internal Medicine
PROC: 0F9930Z Drainage of Common Bile Duct with Drainage Device, Percutaneous Approach (ICD-10-PCS; 2020-11-22)
PROC: 0F793DZ Dilation of Common Bile Duct with Intraluminal Device, Percutaneous Approach (ICD-10-PCS; principal; 2020-11-24)
DX: K83.1 Obstruction of bile duct (principal); E87.1 Hypo-osmolality and hyponatremia; I51.81 Takotsubo syndrome; C78.7 Secondary malignant neoplasm of liver and intrahepatic bile duct; C25.9 Malignant neoplasm of pancreas, unspecified; I10 Essential (primary) hypertension; E11.65 Type 2 diabetes mellitus with hyperglycemia; E78.5 Hyperlipidemia, unspecified; Z80.0 Family history of malignant neoplasm of digestive organs; Z80.1 Family history of malignant neoplasm of trachea, bronchus and lung; Z98.84 Bariatric surgery status; Z90.49 Acquired absence of other specified parts of digestive tract
CPT/HCPCS: 36415; 96374; 96375; 99285; J3490; 47534; 47535; 47540; 80053; 80061; 82962; 83036; 83690; 83735; 84100; 84443; 85025; 85610; 99156; 99157; C1894; G0378; J2250; J3010; J3480; Q9966; C1729; C1751; C1769; C1876; J1815; J2310; J3475; J7030; J7040

== ENCOUNTER 2020-12-01 19:28 | Emergency (ER) | payer OTHER ==
[~2020-12-01] VITALS: Ht 154.9 cm; Wt 66.5 kg
--- NOTE | 2020-12-01 19:38 | NUR ---
EKG IN TRIAGE
--- NOTE | 2020-12-01 20:52 | NUR ---
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
[2020-12-01 21:10] LABS: BASOPHILS % (AUTO) 1 % (0-1); EOSINOPHILS % (AUTO) 3 % (1-7); LYMPHOCYTES % (AUTO) 24 % (22-44); MEAN CORPUSCULAR HEMOGLOBIN 30.9 pg (27.0-34.8); MEAN CORPUSCULAR HGB CONC 33.7 g/dL (32.4-35.8); MEAN PLATELET VOLUME 7.5 fL (7.4-10.4); MONOCYTES % (AUTO) 8 % (2-9); NEUTROPHILS % (AUTO) 64 % (42-75); PLATELET COUNT 418 x10^3/uL (130-400); RED BLOOD COUNT 3.96 x10^6/uL (3.82-5.3); RED CELL DISTRIBUTION WIDTH 15.2 % (9.6-15.2)
--- NOTE | 2020-12-01 21:13 | NUR ---
FIRST CONTACT WITH PT. NADN. MARTINEZ. PT REPORTS CHEST PAIN HAS GONE AWAY. 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 WILL CONTINUE TO MONITOR
[2020-12-01 21:18] LABS: ALBUMIN 2.6 g/dL (3.4-5.0); ANION GAP 5 mmol/L (5-15); CALCIUM 9.1 mg/dL (8.5-10.1); CHLORIDE 100 mmol/L (98-107)
[2020-12-01 21:24] LABS: ALANINE AMINOTRANSFERASE 52 U/L (12-78); ALKALINE PHOSPHATASE 270 U/L (45-117); BILIRUBIN,TOTAL 2.7 mg/dL (0.2-1.0); CREATININE 0.58 mg/dL (0.55-1.02); TROPONIN I < 0.015 ng/mL (0.000-0.045)
[2020-12-01 21:44] VITALS: BP 110/70
== END 2020-12-01 21:46 | disposition home or self-care (01) ==
LOC: ED 21:02
DX: R07.89 Other chest pain (principal); R10.9 Unspecified abdominal pain; I10 Essential (primary) hypertension; E78.5 Hyperlipidemia, unspecified; E11.9 Type 2 diabetes mellitus without complications; Z90.49 Acquired absence of other specified parts of digestive tract; Z85.07 Personal history of malignant neoplasm of pancreas
CPT/HCPCS: 36415; 71045; 80053; 84484; 85025; 93005; 99285

== ENCOUNTER 2020-12-06 11:22 | Day surgery (SDC) | payer OTHER ==
[~2020-12-06] VITALS: Ht 154.9 cm; Wt 65.6 kg
[2020-12-06] MEDS ORDERED: LIDOCAINE 1%, 10ML ONE (12:55)
[2020-12-06] MEDS ORDERED: LIDOCAINE 1%, 20ML ONE (12:56)
[2020-12-06] MEDS ORDERED: SODIUM CHLORIDE 0.9% 1,000 ML IV SCH (13:00)
[2020-12-06] MEDS ORDERED: CEFAZOLIN PMX 1GM/50ML 50 ML IV ONE (13:00)
[2020-12-06] MEDS ORDERED: CEFAZOLIN PMX 1GM/50ML 50 ML ONE (13:11)
[2020-12-06 13:14] VITALS: BP 97/65
[2020-12-06] MEDS ORDERED: FLUMAZENIL 0.1 MG/1 ML, 5ML ONE (13:42)
[2020-12-06] MEDS ORDERED: MIDAZOLAM 1 MG/ML, 5ML ONE (13:42)
[2020-12-06] MEDS ORDERED: NALOXONE 1 MG/ML, 2ML ONE (13:42)
[2020-12-06] MEDS ORDERED: FENTANYL PF 100 MCG/2ML ONE (13:42)
== END 2020-12-06 15:30 | disposition home or self-care (01) ==
LOC: RAD 11:22
PROVIDERS: ATTEND Internal Medicine
DX: C50.611 Malignant neoplasm of axillary tail of right female breast (principal); C78.89 Secondary malignant neoplasm of other digestive organs; C78.7 Secondary malignant neoplasm of liver and intrahepatic bile duct; I10 Essential (primary) hypertension; E11.9 Type 2 diabetes mellitus without complications; E78.5 Hyperlipidemia, unspecified; I51.81 Takotsubo syndrome; E43 Unspecified severe protein-calorie malnutrition; Z79.84 Long term (current) use of oral hypoglycemic drugs; Z79.899 Other long term (current) drug therapy; Z91.018 Allergy to other foods; Z98.84 Bariatric surgery status; Z98.890 Other specified postprocedural states
CPT/HCPCS: 36561; 76937; 77001; 99156; 99157; C1788; J0690; J1642; J2250; J3010; J7030; J2310